=== PATIENT | female | born 1980 | race Asian ===

== ENCOUNTER 2016-11-30 06:00 | Inpatient (IN) | payer SELFPAY ==
[~2016-11-30] VITALS: Ht 167.6 cm; Wt 86.2 kg
[2016-11-30 06:50] VITALS: BP 108/80
[2016-11-30] MEDS ORDERED: LACTATED RINGERS 1,000 ML IV SCH (06:53)
[2016-11-30] MEDS ORDERED: IBUPROFEN 800 MG TAB PO PRN ×2 (06:55→10:05)
[2016-11-30] MEDS ORDERED: BUPIVACAINE-MPF 0.75% 10 ML VIAL INJ ONE (07:00)
[2016-11-30] MEDS ORDERED: MIDAZOLAM 2 MG/2 ML VIAL ONE (07:02)
[2016-11-30] MEDS ORDERED: MORPHINE PRES FREE 10 MG/10 ML AMP IV ONE (07:02)
[2016-11-30] MEDS ORDERED: OXYTOCIN 10 UNITS/ML VIAL ONE (07:02)
[2016-11-30] MEDS ORDERED: TRIAMCINOLONE 40 MG/ML 5ML VIAL ONE (07:02)
[2016-11-30] MEDS ORDERED: METHYLERGONOVINE 0.2 MG/ML AMP ONE (07:03)
[2016-11-30 07:15] LABS: BASOPHILS % (AUTO) 0.4 % (0.0-2.0); EOSINOPHILS # (AUTO) 0.2 K/uL (0-0.4); EOSINOPHILS % (AUTO) 1.7 % (0.0-4.0); HEMOGLOBIN 11.7 g/dL (12.0-16.0); LYMPHOCYTES # (AUTO) 2.8 K/uL (2.5-16.5); LYMPHOCYTES % (AUTO) 29.5 % (20.5-51.1); MEAN CORPUSCULAR HEMOGLOBIN 29 pg (27-31); MEAN CORPUSCULAR HGB CONC 33 g/dL (33-37); MEAN CORPUSCULAR VOLUME 88 fL (80-94); MONOCYTES # (AUTO) 0.6 K/uL (0.8-1.0); MONOCYTES % (AUTO) 6.4 % (1.7-9.3); NEUTROPHILS # (AUTO) 5.8 K/uL (1.8-7.7); PLATELET COUNT (AUTO) 244 K/uL (140-450); RED BLOOD CELL COUNT(AUTO) 3.99 MIL/uL (4.20-5.40); RED CELL DISTRIBUTION WIDTH 13.4 % (11.6-13.7); WHITE BLOOD COUNT (AUTO) 9.4 K/uL (4.8-10.8)
[2016-11-30] MEDS ORDERED: ceFAZolin 1,000 MG VIAL ONE (07:20)
[2016-11-30] MEDS ORDERED: OXYTOCIN 20 UNITS/LR PREMIX 1,000 ML IV SCH ×2 (07:53→21:10)
[2016-11-30] MEDS ORDERED: HYDROmorphone 1 MG/ML AMP IVP PRN (07:55)
[2016-11-30] MEDS ORDERED: diphenhydrAMINE 50 MG/ML VIAL IVP PRN ×2 (07:55)
[2016-11-30] MEDS ORDERED: MEPERIDINE 25 MG/ML SYR IVP PRN (07:55)
[2016-11-30] MEDS ORDERED: NALOXONE 0.4 MG/ML VIAL IVP PRN ×3 (07:55)
[2016-11-30] MEDS ORDERED: ONDANSETRON 4 MG/2 ML VIAL IVP PRN ×2 (07:55)
[2016-11-30] MEDS ORDERED: NALBUPHINE 10 MG/ML AMP IVP PRN (07:55)
[2016-11-30 08:32] LABS: APPEARANCE,URINE CLEAR (CLEAR); BILIRUBIN,URINE NEGATIVE (NEGATIVE); BLOOD, URINE NEGATIVE (NEGATIVE); COLOR,URINE YELLOW (YELLOW); LEUKOCYTE ESTERASE ,URINE NEGATIVE (NEGATIVE); NITRITE, URINE NEGATIVE (NEGATIVE); PH,URINE 6.5 (5.0-9.0); PROTEIN,URINE NEGATIVE (NEGATIVE); UGLUCOSE NEGATIVE (NEGATIVE); UROBILINOGEN,URINE 0.2 EU/dL (0.2 - 1)
[2016-11-30] MEDS ORDERED: ONDANSETRON 4 MG/2 ML VIAL ONE (09:05)
[2016-11-30] MEDS ORDERED: diphenhydrAMINE 50 MG/ML VIAL ONE (09:05)
--- NOTE | 2016-11-30 09:05 | NUR ---
PATIENT HAS BEEN SCREENED AND CATEGORIZED LOW NUTRITION RISK. PATIENT WILL BE SEEN WITHIN 7 DAYS OF ADMISSION. 12/06/[address]
[2016-11-30 09:23] LABS: HIV RAPID SCREEN NON-REACTIVE (NON REACTIV)
[2016-11-30 09:26] LABS: BACTERIA,URINE 1+ /HPF (None Seen); RBC,URINE NONE SEEN /HPF (0-5); SQUAMOUS EPITHELIAL CELL,UR 0-3 (FEW) /LPF (0-3 (FEW)); WBC,URINE 0-5 (RARE) /HPF (0-5)
[2016-11-30] MEDS ORDERED: MEASLES, MUMPS, AND RUBELLA 1 VIAL SQVAC PRN (10:05)
[2016-11-30] MEDS ORDERED: METHYLERGONOVINE 0.2 MG/ML AMP IM PRN (10:05)
[2016-11-30 10:37] LABS: RAPID PLASMA REAGIN NON-REACTIVE (Non Reactiv)
[2016-11-30] MEDS: KETOROLAC 30 MG/ML VIAL IM/IVP SCH (12:00)
[2016-11-30] MEDS ORDERED: OXYTOCIN 20 UNITS/LR PREMIX 1,000 ML IV ONE (22:24)
[2016-12-01] MEDS: KETOROLAC 30 MG/ML VIAL IM/IVP SCH ×2 (00:04→07:48)
[2016-12-01 06:53] LABS: BASOPHILS # (AUTO) 0.1 K/uL (0.00-0.22); BASOPHILS % (AUTO) 0.5 % (0.0-2.0); EOSINOPHILS # (AUTO) 0.2 K/uL (0-0.4); EOSINOPHILS % (AUTO) 1.2 % (0.0-4.0); HEMATOCRIT 33.2 % (36-48); HEMOGLOBIN 10.8 g/dL (12.0-16.0); LYMPHOCYTES # (AUTO) 1.6 K/uL (2.5-16.5); MEAN CORPUSCULAR HEMOGLOBIN 29 pg (27-31); MEAN CORPUSCULAR HGB CONC 33 g/dL (33-37); MEAN CORPUSCULAR VOLUME 89 fL (80-94); MONOCYTES # (AUTO) 0.7 K/uL (0.8-1.0); MONOCYTES % (AUTO) 4.9 % (1.7-9.3); NEUTROPHILS # (AUTO) 11.8 K/uL (1.8-7.7); NEUTROPHILS % (AUTO) 82.4 % (42.2-75.2); PLATELET COUNT (AUTO) 218 K/uL (140-450); RED BLOOD CELL COUNT(AUTO) 3.75 MIL/uL (4.20-5.40); RED CELL DISTRIBUTION WIDTH 13.4 % (11.6-13.7); WHITE BLOOD COUNT (AUTO) 14.4 K/uL (4.8-10.8)
[2016-12-01] MEDS: oxyCODONE/APAP 5/325 MG 1 TAB TAB PO PRN (11:27)
[2016-12-01] MEDS: HYDROcodone/APAP 5/325 MG 1 TAB TAB PO PRN ×2 (14:29→19:36)
[2016-12-01] MEDS: BISACODYL 5 MG TABEC PO SCH (19:37)
[2016-12-02] MEDS: HYDROcodone/APAP 5/325 MG 1 TAB TAB PO PRN ×2 (00:08→05:59)
[2016-12-02] MEDS: BISACODYL 5 MG TABEC PO SCH ×2 (09:45→21:18)
[2016-12-02] MEDS: oxyCODONE/APAP 5/325 MG 1 TAB TAB PO PRN ×3 (10:15→19:38)
[2016-12-03] MEDS: oxyCODONE/APAP 5/325 MG 1 TAB TAB PO PRN ×2 (03:19→08:43)
[2016-12-03] MEDS: BISACODYL 5 MG TABEC PO SCH (08:29)
[2016-12-03] MEDS ORDERED: IBUP-2213 PO (09:10)
== END 2016-12-03 15:05 | disposition home or self-care (01) | DRG 766 ==
LOC: MLD 06:00 → MFCC 08:04
PROVIDERS: ADMIT Obstetrics & Gynecology; ATTEND Obstetrics & Gynecology
PROC: 10D00Z1 Extraction of Products of Conception, Low, Open Approach (ICD-10-PCS; principal; 2016-11-30 07:30)
DX: O34.29 Maternal care due to uterine scar from other previous surgery (principal); O69.81X0 Labor and delivery complicated by cord around neck, without compression, not applicable or unspecified; Z37.0 Single live birth; O09.523 Supervision of elderly multigravida, third trimester; O09.293 Supervision of pregnancy with other poor reproductive or obstetric history, third trimester; Z3A.39 39 weeks gestation of pregnancy; Z28.21 Immunization not carried out because of patient refusal
CPT/HCPCS: 36415; 81001; 85025; 86592; 86886; 86900; 86901; 87086; J0690; J1200; J1885; J2210; J2250; J2270; J2405; J2590; J3301; J3490; J7060; J7120